=== PATIENT | female | born 1990 | race American Indian/Alaskan Native ===

== ENCOUNTER 2018-02-06 00:45 | Emergency (ER) | payer MEDICAID ==
[2018-02-06 03:22] LABS: Amorphous Crystals,Urine 1+; Bilirubin,Urine NEG (Negative); Blood,Urine NEG (Negative); Color,Urine Yellow (Yellow); Mucus,Urine 2+ /HPF; Protein,Urine <15 mg/dL mg/dL (Negative); Urobilinogen,Urine < 2.0 mg/dL (<2.0)
[2018-02-06 03:30] LABS: RBC,Urine < 1.0 /HPF (0.0-6.0); WBC,Urine < 1.0 /HPF (0.0-6.0)
[2018-02-06 06:05] LABS: Basophils % (Auto) 0.7 % (0.0-1.8); Eosinophils # (Auto) 0.6 K/mm3 (0.0-0.4); Eosinophils % (Auto) 8.2 % (0.0-4.3); Hematocrit 37.5 % (30.3-42.9); Hemoglobin 12.3 gm/dl (10.1-14.3); Lymphocytes % (Auto) 29.1 % (13.4-35.0); Mean Corpuscular HGB Conc 33 % (30-34); Mean Corpuscular Hemoglobin 29 pg (28-32); Mean Corpuscular Volume 89 fl (79-97); Monocytes # (Auto) 0.6 K/mm3 (0.0-0.8); Monocytes % (Auto) 8.3 % (0.0-7.3); Platelet Count 228 K/mm3 (140-440); Red Blood Count 4.19 M/mm3 (3.65-5.03); Red Cell Distribution Width 16.6 % (13.2-15.2)
[2018-02-06 06:17] LABS: Alanine Aminotransferase 15 units/L (7-56); Albumin 4.3 g/dL (3.9-5); BUN/Creatinine Ratio 17; Blood Urea Nitrogen 12 mg/dL (7-17); Calcium 9.1 mg/dL (8.4-10.2); Hemolysis Index 5
--- NOTE | 2018-02-06 06:20 | Emergency Department Report ---
ED Abdominal Pain HPI - General Chief Complaint: Abdominal Pain Stated Complaint: ABD PAIN Time Seen by Provider: 02/06/18 06:19 Source: patient Mode of arrival: Ambulatory Limitations: No Limitations - History of Present Illness Initial Comments: This is a 27-year-old female with complaints of left lower quadrant pain intermittently which does not radiate. It has improved at the time of my initial encounter which was not long after 6 AM. The patient has a distinct tendency to lay on her stomach with a sheet over her head. Doesn't much interact with nursing or providers. However, she will cooperate but then resumes that physician. She states that she has had intermittent pain since last night. It is dull in nature. States she has not had this before. She does not complain of any urinary symptoms nor any vaginal discharge. She states she has a histology aide. She also states her normal blood pressure is low. MD Complaint: abdominal pain -: Gradual, hour(s) Location: LLQ Radiation: none Migration to: no migration Severity: mild Quality: aching Consistency: intermittent, now resolved Improves With: nothing Worsens With: nothing Associated Symptoms: denies other symptoms - Related Data Allergies Allergy/AdvReac Type Severity Reaction Status Date / Time hydrocodone Allergy Hives Verified 07/29/16 09:37 Penicillins Allergy Unknown Verified 07/29/16 09:37 ED Review of Systems ROS: Stated complaint: ABD PAIN Other details as noted in HPI Constitutional: denies: chills, fever Eyes: denies: eye pain, eye discharge, vision change ENT: denies: ear pain, throat pain Respiratory: denies: cough, shortness of breath, wheezing Cardiovascular: denies: chest pain, palpitations Endocrine: no symptoms reported Gastrointestinal: abdominal pain. denies: nausea, diarrhea Genitourinary: denies: urgency, dysuria, discharge Musculoskeletal: denies: back pain, joint swelling, arthralgia Skin: denies: rash, lesions Neurological: denies: headache, weakness, paresthesias Psychiatric: denies: anxiety, depression Hematological/Lymphatic: denies: easy bleeding, easy bruising ED Past Medical Hx - Past Medical History Previous Medical History?: Yes Hx Psychiatric Treatment: Yes (dEPRESSION, shizophrenia, bipolar) - Surgical History Past Surgical History?: No - Social History Smoking Status: Current Every Day Smoker Substance Use Type: None ED Physical Exam - General Limitations: No Limitations General appearance: alert, in no apparent distress - Head Head exam: Present: atraumatic, normocephalic - Eye Eye exam: Present: normal appearance, PERRL, EOMI. Absent: scleral icterus - ENT ENT exam: Present: mucous membranes moist - Neck Neck exam: Present: normal inspection. Absent: tenderness, meningismus - Respiratory Respiratory exam: Present: normal lung sounds bilaterally. Absent: respiratory distress - Cardiovascular Cardiovascular Exam: Present: regular rate, normal rhythm. Absent: systolic murmur, diastolic murmur, rubs, gallop - GI/Abdominal GI/Abdominal exam: Present: soft, normal bowel sounds. Absent: distended, tenderness, guarding, rebound, rigid, organomegaly, mass, bruit, pulsatile mass , hernia - Extremities Exam Extremities exam: Present: normal inspection - Back Exam Back exam: Present: normal inspection. Absent: CVA tenderness (R), CVA tenderness (L) - Neurological Exam Neurological exam: Present: alert, oriented X3, CN II-XII intact. Absent: motor sensory deficit - Psychiatric Psychiatric exam: Present: normal affect, normal mood - Skin Skin exam: Present: warm, dry, intact, normal color. Absent: rash ED Course Vital Signs 02/06/18 02/06/18 02/06/18 02:32 06:54 07:10 Temperature 98 F 98.7 F Pulse Rate 90 67 Respiratory 18 17 Rate Blood Pressure 101/71 Blood Pressure 86/46 [Right] O2 Sat by Pulse 97 100 98 Oximetry 02/06/18 02/06/18 08:04 08:34 Temperature Pulse Rate Respiratory 18 16 Rate Blood Pressure Blood Pressure [Right] O2 Sat by Pulse Oximetry - Reevaluation(s) Reevaluation #1: Patient found again laying on her stomach with sheet over her head. She states she is ready for discharge. Her laboratory and imaging studies were unremarkable. She is appropriate for follow-up with her histology aide. Blood pressure was in the 90s systolic on my exam. Patient was well perfused and mentating. 02/06/18 11:23 02/06/18 11:24 ED Medical Decision Making - Lab Data Result diagrams: 02/06/18 05:49 02/06/18 05:49 Laboratory Results - last 24 hr 02/06/18 02/06/18 02/06/18 02:57 05:49 05:49 WBC 6.9 RBC 4.19 Hgb 12.3 Hct 37.5 MCV 89 MCH 29 MCHC 33 RDW 16.6 H Plt Count 228 Lymph % (Auto) 29.1 [place] % (Auto) 8.3 H Eos % (Auto) 8.2 H Baso % (Auto) 0.7 Lymph # 2.0 [place] # 0.6 Eos # 0.6 H Baso # 0.0 Seg Neutrophils % 53.7 Seg Neutrophils # 3.7 Sodium 142 Potassium 4.2 Chloride 104.0 Carbon Dioxide 28 Anion Gap 14 BUN 12 Creatinine 0.7 Estimated GFR > 60 BUN/Creatinine Ratio 17 Glucose 104 H Calcium 9.1 Total Bilirubin < 0.20 AST 20 ALT 15 Alkaline Phosphatase 76 Total Protein 7.2 Albumin 4.3 Albumin/Globulin Ratio 1.5 Urine Color Yellow Urine Turbidity Clear Urine pH 6.0 Ur Specific [place] 1.028 Urine Protein <15 mg/dl Urine Glucose (UA) Neg Urine Ketones Tr Urine Blood Neg Urine Nitrite Neg Urine Bilirubin Neg Urine Urobilinogen < 2.0 Ur Leukocyte Esterase Sm Urine WBC (Auto) < 1.0 Urine RBC (Auto) < 1.0 U Epithel Cells (Auto) 4.0 Amorphous Crystals 1+ Urine Mucus 2+ Urine Yeast (Budding) Few - Radiology Data Radiology results: report reviewed interpreted by me: Ultrasound of the abdomen and renal ultrasound were negative Critical care attestation.: If time is entered above; I have spent that time in minutes in the direct care of this critically ill patient, excluding procedure time. ED Disposition Clinical Impression: Abdominal pain Qualifiers: Abdominal location: left lower quadrant Qualified Code(s): R10.32 - Left lower quadrant pain Disposition: - TO HOME OR SELFCARE Is pt being admited?: No Does the pt Need Aspirin: No Condition: Stable Instructions: Abdominal Pain (ED) Additional Instructions: Follow-up with usual histology aide. Return any acute change or problems Referrals: PRIMARY CARE,MD [Primary Care Provider] - 3-5 Days usual, histology aide [Other] - 3-5 Days Time of Disposition: 11:24
[2018-02-06 06:23] LABS: HCG Qualitative,Urine Negative (Negative)
[2018-02-06] MEDS ORDERED: NACL 0.9% 1000 ML 1,000 ML IV ONE (06:23)
[2018-02-06] MEDS ORDERED: TORADOL IV ONE (06:53)
--- NOTE | 2018-02-06 08:36 | Ultrasound Report ---
Pelvic and transvaginal sonography: History: Right lower quadrant pain. Findings: Uterus measures 8 x 4.9 x 4.9 cm. Endometrial thickness 7.3 mm. No mass. No fluid in the endometrium. Right ovary 2.9 x 2 x 2.6 cm. No mass. Left ovary 3.9 x 1.6 x 2.4 cm. No mass. Bilaterally follicles are noted. No fluid in the cul-de-sac. Impression: No mass in the uterus. No mass of the adnexa
--- NOTE | 2018-02-06 08:37 | Ultrasound Report ---
Renal sonogram: History: Abdominal pain. Findings: Right kidney 9.1 x 4.1 x 5 cm. Cortical thickness 1 cm. Left kidney 11.5 x 4.9 x 4.9 cm. Cortical thickness 1.5 cm. No mass or hydronephrosis. Impression: Essentially negative renal sonogram.
[2018-02-06 12:26] VITALS: BP 92/48
== END 2018-02-06 11:56 | disposition home or self-care (01) ==
LOC: ED 00:45
DX: R10.32 Left lower quadrant pain (principal); F31.9 Bipolar disorder, unspecified; F20.9 Schizophrenia, unspecified; F17.200 Nicotine dependence, unspecified, uncomplicated; Z88.0 Allergy status to penicillin; Z88.8 Allergy status to other drugs, medicaments and biological substances
CPT/HCPCS: 36415; 76770; 76856; 80053; 81001; 81025; 85025; 96374; 99284; J1885; J7030

== ENCOUNTER 2019-03-17 12:22 | Emergency (ER) | payer MEDICAID ==
--- NOTE | 2019-03-17 12:37 | Emergency Department Report ---
Blank Doc - Documentation Documentation: This is a 28-year-old female that presents with coughing and headache. Stated has abdominal pain only when coughing. Denies any abdominal pain now. Denies head trauma or worst headache. denies any other complaints or symptoms. This initial assessment/diagnostic orders/clinical plan/treatment(s) is/are subject to change based on patient's health status, clinical progression and re- assessment by fellow clinical providers in the ED. Further treatment and workup at subsequent clinical providers discretion. Patient/guardians urged not to elope from the ED as their condition may be serious if not clinically assessed and managed. Initial orders include: 1- Patient sent to [facility] for further evaluation and treatment 2- CXR
[2019-03-17 12:39] VITALS: BP 98/54
[2019-03-17] MEDS ORDERED: IBUPROFEN PO ONE (13:27)
--- NOTE | 2019-03-17 13:29 | Emergency Department Report ---
ED General Adult HPI - General Chief complaint: Abdominal Pain Stated complaint: HEADACHE/COUGHING UP BLOOD Time Seen by Provider: 03/17/19 12:34 Source: patient Mode of arrival: Ambulatory Limitations: No Limitations - History of Present Illness Initial comments: This is a 28-year-old female that presents with coughing and headache. Stated has abdominal pain only when coughing. Denies any abdominal pain now. Denies head trauma or worst headache. denies any other complaints or symptoms. Onset/Timin -: days(s) Location: head Radiation: non-radiation Severity scale (0 -10): 0 Quality: aching Consistency: intermittent Improves with: none Worsens with: none Associated Symptoms: cough Treatments Prior to Arrival: other (TheraFlu) - Related Data Previous Rx's Medication Instructions Recorded Last Taken Type Ibuprofen [Motrin 600 MG tab] 600 mg PO Q8H PRN #15 tablet 03/17/19 Unknown Rx guaiFENesin [Robitussin] 200 mg PO Q4HR PRN #1 bottle 03/17/19 Unknown Rx Allergies Allergy/AdvReac Type Severity Reaction Status Date / Time hydrocodone Allergy Hives Verified 07/29/16 09:37 Penicillins Allergy Unknown Verified 07/29/16 09:37 PEROXIDE Allergy Hives Uncoded 03/17/19 12:23 ED Review of Systems ROS: Stated complaint: HEADACHE/COUGHING UP BLOOD Other details as noted in HPI Comment: All other systems reviewed and negative ED Past Medical Hx - Past Medical History Hx Psychiatric Treatment: Yes (dEPRESSION, shizophrenia, bipolar) - Surgical History Past Surgical History?: No - Social History Smoking Status: Light Tobacco Smoker Substance Use Type: Marijuana - Medications Home Medications: Home Medications Medication Instructions Recorded Confirmed Last Taken Type Ibuprofen [Motrin 600 MG tab] 600 mg PO Q8H PRN #15 tablet 03/17/19 Unknown Rx guaiFENesin [Robitussin] 200 mg PO Q4HR PRN #1 bottle 03/17/19 Unknown Rx ED Physical Exam - General Limitations: No Limitations General appearance: alert, in no apparent distress - Head Head exam: Present: atraumatic, normocephalic - Eye Eye exam: Present: normal appearance - ENT ENT exam: Present: mucous membranes moist - Neck Neck exam: Present: normal inspection - Respiratory Respiratory exam: Present: normal lung sounds bilaterally. Absent: respiratory distress - Cardiovascular Cardiovascular Exam: Present: regular rate, normal rhythm. Absent: systolic murmur, diastolic murmur, rubs, gallop - GI/Abdominal GI/Abdominal exam: Present: soft, normal bowel sounds - Extremities Exam Extremities exam: Present: normal inspection - Back Exam Back exam: Present: normal inspection - Neurological Exam Neurological exam: Present: alert, oriented X3 - Expanded Neurological Exam Expanded Cranial nerves: EOM's Intact: Normal, Gag Reflex: Normal, Tongue Deviation: Normal, Nystagmus: Normal, Facial Sensation: Normal, Facial Palsy with Forehead Movement: Normal, Facial Palsy without Forehead Movement: Normal Cerebellar function: Finger to Nose: Normal, Heel to [place]: Normal, Romberg: Normal Upper motor neuron: [place] Neglect: Normal, Pronator Drift: Normal, Babinski Sign: Normal, Sensory Extinction: Normal Motor strength exam: RUE: 5, LUE: 5, RLE: 5, LLE: 5 Best Eye Response (Jonathon): (4) open spontaneously Best Motor Response (Circle): (6) obeys commands Best Verbal Response (Jonathon): (5) oriented Jonathon Total: 15 - Psychiatric Psychiatric exam: Present: normal affect, normal mood - Skin Skin exam: Present: warm, dry, intact, normal color. Absent: rash ED Course Vital Signs 03/17/19 12:34 Temperature 98.6 F Pulse Rate 90 Respiratory 16 Rate Blood Pressure 98/54 O2 Sat by Pulse 100 Oximetry ED Medical Decision Making - Radiology Data Radiology results: report reviewed Patient: RADHA WINCHESTER MR#: [id number] : 1990 Acct:[id number] Age/Sex: 28 / F ADM Date: 03/17/19 Loc: ED Attending Dr: Ordering Physician: DARÍO STANLEY NP Date of Service: 03/17/19 Procedure(s): XR chest routine 2V Accession Number(s): [id number] cc: DARÍO STANLEY NP Fluoro Time In Minutes: CHEST 2 VIEWS INDICATION: cough. COMPARISON: None. FINDINGS: Support devices: None. Heart: Normal. Lungs/pleura: Normally expanded and clear lungs. No pleural effusion. No pneumothorax. Additional findings: None. IMPRESSION: 1. No acute findings. Signer Name: Morgan Engel MD Signed: 03/17/2019 1:28 PM Workstation Name: [id number] Transcribed By: REF Dictated By: MORGAN ENGEL MD Electronically Authenticated By: MORGAN ENGEL MD Signed Date/Time: 03/17/191327 DD/ 27 TD/TT: - Medical Decision Making This is a 28-year-old female that presents with coughing and headache. Stated has abdominal pain only when coughing. Denies any abdominal pain now. Denies head trauma or worst headache. denies any other complaints or symptoms. Patient given ibuprofen 600 mg for pain management. Chest x-ray is pending results. Chest x-ray is negative for any acute cardiopulmonary abnormalities. Patient will be discharged home on Robitussin liquid in ibuprofen. Critical care attestation.: If time is entered above; I have spent that time in minutes in the direct care o f this critically ill patient, excluding procedure time. ED Disposition Clinical Impression: Cough Headache Qualifiers: Headache type: tension-type Headache chronicity pattern: acute headache Intractability: intractable Qualified Code(s): G44.201 - Tension-type headache, unspecified, intractable Disposition: DC-01 TO HOME OR SELFCARE Is pt being admited?: No Does the pt Need Aspirin: No Condition: Stable Instructions: Guaifenesin (By mouth), Acute Cough (ED) Additional Instructions: Please take pain medication as needed please take cough medication as needed follow-up with her primary care provider for symptoms persist or gets worse. Prescriptions: Ibuprofen [Motrin 600 MG tab] 600 mg PO Q8H PRN #15 tablet PRN Reason: Pain guaiFENesin [Robitussin] 200 mg PO Q4HR PRN #1 bottle PRN Reason: Cough Referrals: KIRILL CHÁVEZ MD [Primary Care Provider] - 3-5 Days NANI YBARRA MD [Staff Physician] - 3-5 Days
--- NOTE | 2019-03-17 13:33 | XRay Report ---
CHEST 2 VIEWS INDICATION: cough. COMPARISON: None. FINDINGS: Support devices: None. Heart: Normal. Lungs/pleura: Normally expanded and clear lungs. No pleural effusion. No pneumothorax. Additional findings: None. IMPRESSION: 1. No acute findings. Signer Name: Yvan Montenegro MD Signed: 03/17/2019 1:28 PM Workstation Name: [id number]
== END 2019-03-17 13:49 | disposition home or self-care (01) ==
LOC: ED 12:22
DX: R05 Cough (principal); R51 Headache; F31.9 Bipolar disorder, unspecified; F20.9 Schizophrenia, unspecified; F17.210 Nicotine dependence, cigarettes, uncomplicated; F12.90 Cannabis use, unspecified, uncomplicated; Z79.899 Other long term (current) drug therapy; Z88.6 Allergy status to analgesic agent; Z88.0 Allergy status to penicillin; Z88.8 Allergy status to other drugs, medicaments and biological substances
CPT/HCPCS: 71046; 99283

== ENCOUNTER 2020-02-22 21:31 | Emergency (ER) | payer MEDICARE, MEDICAID ==
[2020-02-22 23:30] LABS: Basophils % (Auto) 0.6 % (0.0-1.8); Eosinophils # (Auto) 0.3 K/mm3 (0.0-0.4); Eosinophils % (Auto) 5.3 % (0.0-4.3); Hematocrit 39.8 % (30.3-42.9); Hemoglobin 13.2 gm/dl (10.1-14.3); Lymphocytes # (Auto) 1.8 K/mm3 (1.2-5.4); Lymphocytes % (Auto) 31.1 % (13.4-35.0); Mean Corpuscular HGB Conc 33 % (30-34); Mean Corpuscular Volume 92 fl (79-97); Monocytes # (Auto) 0.6 K/mm3 (0.0-0.8); Monocytes % (Auto) 10.4 % (0.0-7.3); Platelet Count 223 K/mm3 (140-440); Red Blood Count 4.34 M/mm3 (3.65-5.03)
[2020-02-22 23:42] LABS: BUN/Creatinine Ratio 12; Blood Urea Nitrogen 12 mg/dL (7-17); Calcium 8.8 mg/dL (8.4-10.2); Hemolysis Index 3
--- NOTE | 2020-02-23 01:09 | Emergency Department Report ---
ED Psych HPI - General Chief Complaint: Psych Stated Complaint: SUICIDAL Time Seen by Provider: 02/23/20 00:40 Source: patient, EMS Mode of arrival: Ambulatory Limitations: No Limitations - History of Present Illness Initial Comments: 29-year-old female with a past medical history of depression, schizophrenia, bipolar disorder presents to the hospital complaining of suicidal ideation x1 day. Patient's plan is to cut herself with a knife. She denies previous suicide attempt in the past. She endorses auditory visual hallucinations for the past 3 days. She is compliant with her medications. She is not homeless. Patient denies any physical complaints or pain at this time - Related Data Previous Rx's Medication Instructions Recorded Last Taken Type Ibuprofen [Motrin 600 MG tab] 600 mg PO Q8H PRN #15 tablet 03/17/19 Unknown Rx guaiFENesin [Robitussin] 200 mg PO Q4HR PRN #1 bottle 03/17/19 Unknown Rx Allergies Allergy/AdvReac Type Severity Reaction Status Date / Time hydrocodone Allergy Hives Verified 07/29/16 09:37 Penicillins Allergy Unknown Verified 07/29/16 09:37 PEROXIDE Allergy Hives Uncoded 03/17/19 12:23 ED Review of Systems ROS: Stated complaint: SUICIDAL Other details as noted in HPI Comment: All other systems reviewed and negative ED Past Medical Hx - Past Medical History Previous Medical History?: Yes Hx Psychiatric Treatment: Yes (dEPRESSION, shizophrenia, bipolar) - Surgical History Past Surgical History?: No - Social History Smoking Status: Current Every Day Smoker Substance Use Type: Marijuana - Medications Home Medications: Home Medications Medication Instructions Recorded Confirmed Last Taken Type Ibuprofen [Motrin 600 MG tab] 600 mg PO Q8H PRN #15 tablet 03/17/19 Unknown Rx guaiFENesin [Robitussin] 200 mg PO Q4HR PRN #1 bottle 03/17/19 Unknown Rx ED Physical Exam - General Limitations: No Limitations - Other Other exam information: General: No acute distress Head: Atraumatic Eyes: normal appearance ENT: Moist mucous membranes Neck: Normal appearance, no midline tenderness Chest: Clear to auscultation bilaterally CV: Regular rate and rhythm Abdomen: Soft, normal bowel sounds, nontender, nondistended, no rebound or guarding Back: Normal inspection Extremity: Normal inspection, full range of motion Neuro: Alert O x 3, no facial asymmetry, speech clear, no gross motor sensory deficit Psych: Appropriate behavior Skin: No rash ED Course Vital Signs 02/22/20 21:52 Temperature 98.5 F Pulse Rate 98 H Respiratory 18 Rate Blood Pressure 137/85 O2 Sat by Pulse 98 Oximetry - Reevaluation(s) Reevaluation #1: 02/23/20 00:56 Patient's labs are unremarkable. Awaiting UA collection to complete medical clearance 02/23/20 02:41 UA neg for infection likely contaminated sample. UDS pending ED Medical Decision Making - Lab Data Result diagrams: 02/22/20 22:35 02/22/20 22:35 Lab Results 02/22/20 02/22/20 02/22/20 Range/Units 22:35 22:35 22:35 WBC (4.5-11.0) K/mm3 RBC (3.65-5.03) M/mm3 Hgb (10.1-14.3) gm/dl Hct (30.3-42.9) % MCV (79-97) fl MCH (28-32) pg MCHC (30-34) % RDW (13.2-15.2) % Plt Count (140-440) K/mm3 Lymph % (Auto) (13.4-35.0) % [place] % (Auto) (0.0-7.3) % Eos % (Auto) (0.0-4.3) % Baso % (Auto) (0.0-1.8) % Lymph # (1.2-5.4) K/mm3 [place] # (0.0-0.8) K/mm3 Eos # (0.0-0.4) K/mm3 Baso # (0.0-0.1) K/mm3 Seg Neutrophils % (40.0-70.0) % Seg Neutrophils # (1.8-7.7) K/mm3 Sodium 140 (137-145) mmol/L Potassium 3.7 (3.6-5.0) mmol/L Chloride 105.4 (98-107) mmol/L Carbon Dioxide 19 L (22-30) mmol/L Anion Gap 19 mmol/L BUN 12 (7-17) mg/dL Creatinine 1.0 (0.7-1.2) mg/dL Estimated GFR > 60 ml/min BUN/Creatinine Ratio 12 % Glucose 80 (65-100) mg/dL Calcium 8.8 (8.4-10.2) mg/dL HCG, Qual (Negative) Urine Color (Yellow) Urine Turbidity (Clear) Urine pH (5.0-7.0) Ur Specific [place] (1.003-1.030) Urine Protein (Negative) mg/dL Urine Glucose (UA) (Negative) mg/dL Urine Ketones (Negative) mg/dL Urine Blood (Negative) Urine Nitrite (Negative) Urine Bilirubin (Negative) Urine Urobilinogen (<2.0) mg/dL Ur Leukocyte Esterase (Negative) Urine WBC (Auto) (0.0-6.0) /HPF Urine RBC (Auto) (0.0-6.0) /HPF U Epithel Cells (Auto) (0-13.0) /HPF Urine Mucus /HPF Salicylates < 0.3 L (2.8-20.0) mg/dL Acetaminophen < 5.0 L (10.0-30.0) ug/mL Plasma/Serum Alcohol (0-0.07) % 02/22/20 02/22/20 02/22/20 Range/Units 22:35 22:35 22:35 WBC 5.8 (4.5-11.0) K/mm3 RBC 4.34 (3.65-5.03) M/mm3 Hgb 13.2 (10.1-14.3) gm/dl Hct 39.8 (30.3-42.9) % MCV 92 (79-97) fl MCH 31 (28-32) pg MCHC 33 (30-34) % RDW 17.0 H (13.2-15.2) % Plt Count 223 (140-440) K/mm3 Lymph % (Auto) 31.1 (13.4-35.0) % [place] % (Auto) 10.4 H (0.0-7.3) % Eos % (Auto) 5.3 H (0.0-4.3) % Baso % (Auto) 0.6 (0.0-1.8) % Lymph # 1.8 (1.2-5.4) K/mm3 [place] # 0.6 (0.0-0.8) K/mm3 Eos # 0.3 (0.0-0.4) K/mm3 Baso # 0.0 (0.0-0.1) K/mm3 Seg Neutrophils % 52.6 (40.0-70.0) % Seg Neutrophils # 3.0 (1.8-7.7) K/mm3 Sodium (137-145) mmol/L Potassium (3.6-5.0) mmol/L Chloride (98-107) mmol/L Carbon Dioxide (22-30) mmol/L Anion Gap mmol/L BUN (7-17) mg/dL Creatinine (0.7-1.2) mg/dL Estimated GFR ml/min BUN/Creatinine Ratio % Glucose (65-100) mg/dL Calcium (8.4-10.2) mg/dL HCG, Qual Negative (Negative) Urine Color (Yellow) Urine Turbidity (Clear) Urine pH (5.0-7.0) Ur Specific [place] (1.003-1.030) Urine Protein (Negative) mg/dL Urine Glucose (UA) (Negative) mg/dL Urine Ketones (Negative) mg/dL Urine Blood (Negative) Urine Nitrite (Negative) Urine Bilirubin (Negative) Urine Urobilinogen (<2.0) mg/dL Ur Leukocyte Esterase (Negative) Urine WBC (Auto) (0.0-6.0) /HPF Urine RBC (Auto) (0.0-6.0) /HPF U Epithel Cells (Auto) (0-13.0) /HPF Urine Mucus /HPF Salicylates (2.8-20.0) mg/dL Acetaminophen (10.0-30.0) ug/mL Plasma/Serum Alcohol < 0.01 (0-0.07) % 02/22/20 Range/Units Unknown WBC (4.5-11.0) K/mm3 RBC (3.65-5.03) M/mm3 Hgb (10.1-14.3) gm/dl Hct (30.3-42.9) % MCV (79-97) fl MCH (28-32) pg MCHC (30-34) % RDW (13.2-15.2) % Plt Count (140-440) K/mm3 Lymph % (Auto) (13.4-35.0) % [place] % (Auto) (0.0-7.3) % Eos % (Auto) (0.0-4.3) % Baso % (Auto) (0.0-1.8) % Lymph # (1.2-5.4) K/mm3 [place] # (0.0-0.8) K/mm3 Eos # (0.0-0.4) K/mm3 Baso # (0.0-0.1) K/mm3 Seg Neutrophils % (40.0-70.0) % Seg Neutrophils # (1.8-7.7) K/mm3 Sodium (137-145) mmol/L Potassium (3.6-5.0) mmol/L Chloride (98-107) mmol/L Carbon Dioxide (22-30) mmol/L Anion Gap mmol/L BUN (7-17) mg/dL Creatinine (0.7-1.2) mg/dL Estimated GFR ml/min BUN/Creatinine Ratio % Glucose (65-100) mg/dL Calcium (8.4-10.2) mg/dL HCG, Qual (Negative) Urine Color Yellow (Yellow) Urine Turbidity Cloudy (Clear) Urine pH 5.0 (5.0-7.0) Ur Specific [place] 1.025 (1.003-1.030) Urine Protein <15 mg/dl (Negative) mg/dL Urine Glucose (UA) Neg (Negative) mg/dL Urine Ketones Neg (Negative) mg/dL Urine Blood Neg (Negative) Urine Nitrite Neg (Negative) Urine Bilirubin Neg (Negative) Urine Urobilinogen < 2.0 (<2.0) mg/dL Ur Leukocyte Esterase Sm (Negative) Urine WBC (Auto) 15.0 H (0.0-6.0) /HPF Urine RBC (Auto) 4.0 (0.0-6.0) /HPF U Epithel Cells (Auto) 14.0 H (0-13.0) /HPF Urine Mucus 2+ /HPF Salicylates (2.8-20.0) mg/dL Acetaminophen (10.0-30.0) ug/mL Plasma/Serum Alcohol (0-0.07) % - Medical Decision Making [id number] signed for suicidal ideation with plan. Patient will need mental health evaluation. Critical Care Time: No Critical care attestation.: If time is entered above; I have spent that time in minutes in the direct care of this critically ill patient, excluding procedure time. ED Disposition Clinical Impression: Suicidal ideation, Psychosis, Schizophrenia, Bipolar disorder, Medical clearance for psychiatric admission Disposition: DC/TX-65 PSY HOSP/PSY UNIT Condition: Stable
[2020-02-23 02:32] LABS: Amphetamine Screen,Urine PRESUMPTIVE NEGATIVE; Benzodiazepines Screen,Urine PRESUMPTIVE NEGATIVE; Cannabinoid Screen,Urine PRESUMPTIVE NEGATIVE; Cocaine Screen,Urine PRESUMPTIVE NEGATIVE; Methadone Screen,Urine PRESUMPTIVE NEGATIVE; Opiate Screen,Urine PRESUMPTIVE NEGATIVE
[2020-02-23 02:36] LABS: Bilirubin,Urine NEG (Negative); Blood,Urine NEG (Negative); Color,Urine Yellow (Yellow); Mucus,Urine 2+ /HPF; Protein,Urine <15 mg/dL mg/dL (Negative); Urobilinogen,Urine < 2.0 mg/dL (<2.0)
[2020-02-23 20:33] VITALS: BP 113/68
== END 2020-02-23 20:51 ==
LOC: ED 21:31 → EEVIPCON 21:31 → ED 02-23 20:51
DX: R45.851 Suicidal ideations (principal); F29 Unspecified psychosis not due to a substance or known physiological condition; F20.9 Schizophrenia, unspecified; F31.9 Bipolar disorder, unspecified; Z04.6 Encounter for general psychiatric examination, requested by authority; F17.200 Nicotine dependence, unspecified, uncomplicated; F12.10 Cannabis abuse, uncomplicated; Z79.1 Long term (current) use of non-steroidal anti-inflammatories (NSAID); Z79.899 Other long term (current) drug therapy; Z88.0 Allergy status to penicillin; Z88.8 Allergy status to other drugs, medicaments and biological substances
CPT/HCPCS: 36415; 80048; 80307; 80320; 81001; 84703; 85025; 87086; G0480

== ENCOUNTER 2020-06-08 04:38 | Emergency (ER) | payer MEDICARE, MEDICAID ==
[2020-06-08 06:25] LABS: Bacteria,Urine 1+ /HPF (Negative); Bilirubin,Urine NEG (Negative); Blood,Urine NEG (Negative); Color,Urine Yellow (Yellow); Mucus,Urine FEW /HPF; Protein,Urine <15 mg/dL mg/dL (Negative); RBC,Urine < 1.0 /HPF (0.0-6.0); Urobilinogen,Urine < 2.0 mg/dL (<2.0)
[2020-06-08 06:27] LABS: Basophils % (Auto) 0.4 % (0.0-1.8); Eosinophils # (Auto) 0.1 K/mm3 (0.0-0.4); Hematocrit 37.9 % (30.3-42.9); Hemoglobin 12.9 gm/dl (10.1-14.3); Lymphocytes # (Auto) 1.9 K/mm3 (1.2-5.4); Lymphocytes % (Auto) 24.7 % (13.4-35.0); Mean Corpuscular HGB Conc 34 % (30-34); Mean Corpuscular Volume 90 fl (79-97); Monocytes # (Auto) 0.4 K/mm3 (0.0-0.8); Monocytes % (Auto) 4.9 % (0.0-7.3); Platelet Count 265 K/mm3 (140-440); Red Blood Count 4.23 M/mm3 (3.65-5.03); Red Cell Distribution Width 13.8 % (13.2-15.2)
[2020-06-08 06:32] LABS: Amphetamine Screen,Urine PRESUMPTIVE NEGATIVE; Benzodiazepines Screen,Urine PRESUMPTIVE NEGATIVE; Cannabinoid Screen,Urine PRESUMPTIVE POSITIVE; Cocaine Screen,Urine PRESUMPTIVE POSITIVE; Methadone Screen,Urine PRESUMPTIVE NEGATIVE; Opiate Screen,Urine PRESUMPTIVE NEGATIVE
[2020-06-08 06:44] LABS: Alanine Aminotransferase 17 units/L (7-56); Albumin 4.2 g/dL (3.9-5)
[2020-06-08 06:54] LABS: Bilirubin,Direct < 0.2 mg/dL (0-0.2)
[2020-06-08 11:09] LABS: BUN/Creatinine Ratio 8; Blood Urea Nitrogen 7 mg/dL (7-17); Calcium 9.4 mg/dL (8.4-10.2); Hemolysis Index 10
--- NOTE | 2020-06-08 16:17 | Emergency Department Report ---
ED Psych HPI - General Chief Complaint: Psych Stated Complaint: SUICIDAL IDEATIONS, DEPRESSION, & ANXIETY Time Seen by Provider: 06/08/20 06:08 Source: patient, EMS Mode of arrival: Ambulatory - History of Present Illness Initial Comments: This is a 29-year-old female with a psychiatric history. She states that she moved here from [place] a week ago and that she has been staying here with her mother. She states that she has not been admitted to a psychiatric facility in this area. However she was here in February 2020. Notes reveal that she was 1013. I do not see a transfer form. I am wondering if she eloped. Patient gives many triggers for a 1013. She appears to have some degree of secondary gain. Her history is not very reliable in general. She states that she has "command hallucinations" which tell her to hurt herself. She has not formulated a specific plan. She denies overdose. She is not complaining of any specific medical symptoms. She does admit auditory and visual hallucinosis but appears to have good reality testing not apparently psychotic at the time of my encounter. MD Complaint: suicidal ideation -: days(s) Associated Psychiatric Symptoms: suicidal ideation, auditory hallucinations, visual hallucinations History of same: Yes Quality: intermittent Worsens With: none Associated Symptoms: denies other symptoms Treatments Prior to Arrival: none - Related Data Previous Rx's Medication Instructions Recorded Last Taken Type Ibuprofen [Motrin 600 MG tab] 600 mg PO Q8H PRN #15 tablet 03/17/19 Unknown Rx guaiFENesin [Robitussin] 200 mg PO Q4HR PRN #1 bottle 03/17/19 Unknown Rx Allergies Allergy/AdvReac Type Severity Reaction Status Date / Time hydrocodone Allergy Hives Verified 07/29/16 09:37 Penicillins Allergy Unknown Verified 07/29/16 09:37 PEROXIDE Allergy Hives Uncoded 03/17/19 12:23 ED Review of Systems ROS: Stated complaint: SUICIDAL IDEATIONS, DEPRESSION, & ANXIETY Other details as noted in HPI Constitutional: denies: chills, fever Eyes: denies: eye pain, eye discharge, vision change ENT: denies: ear pain, throat pain Respiratory: denies: cough, shortness of breath, wheezing Cardiovascular: denies: chest pain, palpitations Endocrine: no symptoms reported Gastrointestinal: denies: abdominal pain, nausea, diarrhea Genitourinary: denies: urgency, dysuria, discharge Musculoskeletal: denies: back pain, joint swelling, arthralgia Skin: denies: rash, lesions Neurological: denies: headache, weakness, paresthesias Psychiatric: auditory hallucinations, visual hallucinations, suicidal thoughts. denies: anxiety, depression Hematological/Lymphatic: denies: easy bleeding, easy bruising ED Past Medical Hx - Past Medical History Previous Medical History?: Yes Hx Psychiatric Treatment: Yes (dEPRESSION, shizophrenia, bipolar) - Surgical History Past Surgical History?: No - Social History Smoking Status: Current Every Day Smoker - Medications Home Medications: Home Medications Medication Instructions Recorded Confirmed Last Taken Type Ibuprofen [Motrin 600 MG tab] 600 mg PO Q8H PRN #15 tablet 03/17/19 Unknown Rx guaiFENesin [Robitussin] 200 mg PO Q4HR PRN #1 bottle 03/17/19 Unknown Rx ED Physical Exam - General Limitations: No Limitations General appearance: alert, in no apparent distress - Head Head exam: Present: atraumatic, normocephalic - Eye Eye exam: Present: normal appearance. Absent: scleral icterus - ENT ENT exam: Present: mucous membranes moist - Neck Neck exam: Present: normal inspection - Respiratory Respiratory exam: Present: normal lung sounds bilaterally. Absent: respiratory distress - Cardiovascular Cardiovascular Exam: Present: regular rate, normal rhythm. Absent: systolic murmur, diastolic murmur, rubs, gallop - GI/Abdominal GI/Abdominal exam: Present: soft, normal bowel sounds. Absent: distended, tenderness, guarding, rebound, rigid - Extremities Exam Extremities exam: Present: normal inspection - Back Exam Back exam: Present: normal inspection - Neurological Exam Neurological exam: Present: alert, oriented X3, CN II-XII intact. Absent: motor sensory deficit - Psychiatric Psychiatric exam: Present: normal mood, flat affect, suicidal ideation - Skin Skin exam: Present: warm, dry, intact, normal color. Absent: rash ED Course Vital Signs 06/08/20 06:15 Temperature 98.5 F Pulse Rate 95 H Respiratory 18 Rate Blood Pressure 111/76 [Left] O2 Sat by Pulse 98 Oximetry ED Medical Decision Making - Lab Data Result diagrams: 06/08/20 05:56 06/08/20 05:56 Laboratory Results - last 24 hr 06/08/20 06/08/20 06/08/20 05:56 05:56 05:56 WBC RBC Hgb Hct MCV MCH MCHC RDW Plt Count Lymph % (Auto) [place] % (Auto) Eos % (Auto) Baso % (Auto) Lymph # (Auto) [place] # (Auto) Eos # (Auto) Baso # (Auto) Seg Neutrophils % Seg Neutrophils # Sodium 139 Potassium 4.0 Chloride 101.6 Carbon Dioxide 22 Anion Gap 19 BUN 7 Creatinine 0.9 Estimated GFR > 60 BUN/Creatinine Ratio 8 Glucose 116 H Calcium 9.4 Total Bilirubin Direct Bilirubin AST ALT Alkaline Phosphatase Total Protein Albumin Albumin/Globulin Ratio HCG, Qual Urine Color Urine Turbidity Urine pH Ur Specific [place] Urine Protein Urine Glucose (UA) Urine Ketones Urine Blood Urine Nitrite Urine Bilirubin Urine Urobilinogen Ur Leukocyte Esterase Urine WBC (Auto) Urine RBC (Auto) U Epithel Cells (Auto) Urine Bacteria (Auto) Urine Mucus Salicylates < 0.3 L Urine Opiates Screen Urine Methadone Screen Acetaminophen 5.0 L Ur Barbiturates Screen Ur Phencyclidine Scrn Ur Amphetamines Screen U Benzodiazepines Scrn Urine Cocaine Screen U Marijuana (THC) Screen Drugs of Abuse Note Plasma/Serum Alcohol 06/08/20 06/08/20 06/08/20 05:56 05:56 05:56 WBC 7.8 RBC 4.23 Hgb 12.9 Hct 37.9 MCV 90 MCH 31 MCHC 34 RDW 13.8 Plt Count 265 Lymph % (Auto) 24.7 [place] % (Auto) 4.9 Eos % (Auto) 1.0 Baso % (Auto) 0.4 Lymph # (Auto) 1.9 [place] # (Auto) 0.4 Eos # (Auto) 0.1 Baso # (Auto) 0.0 Seg Neutrophils % 69.0 Seg Neutrophils # 5.4 Sodium Potassium Chloride Carbon Dioxide Anion Gap BUN Creatinine Estimated GFR BUN/Creatinine Ratio Glucose Calcium Total Bilirubin Direct Bilirubin AST ALT Alkaline Phosphatase Total Protein Albumin Albumin/Globulin Ratio HCG, Qual Negative Urine Color Urine Turbidity Urine pH Ur Specific [place] Urine Protein Urine Glucose (UA) Urine Ketones Urine Blood Urine Nitrite Urine Bilirubin Urine Urobilinogen Ur Leukocyte Esterase Urine WBC (Auto) Urine RBC (Auto) U Epithel Cells (Auto) Urine Bacteria (Auto) Urine Mucus Salicylates Urine Opiates Screen Urine Methadone Screen Acetaminophen Ur Barbiturates Screen Ur Phencyclidine Scrn Ur Amphetamines Screen U Benzodiazepines Scrn Urine Cocaine Screen U Marijuana (THC) Screen Drugs of Abuse Note Plasma/Serum Alcohol < 0.01 06/08/20 06/08/20 06/08/20 05:56 06:01 06:01 WBC RBC Hgb Hct MCV MCH MCHC RDW Plt Count Lymph % (Auto) [place] % (Auto) Eos % (Auto) Baso % (Auto) Lymph # (Auto) [place] # (Auto) Eos # (Auto) Baso # (Auto) Seg Neutrophils % Seg Neutrophils # Sodium Potassium Chloride Carbon Dioxide Anion Gap BUN Creatinine Estimated GFR BUN/Creatinine Ratio Glucose Calcium Total Bilirubin 0.30 Direct Bilirubin < 0.2 AST 20 ALT 17 Alkaline Phosphatase 99 Total Protein 7.1 Albumin 4.2 Albumin/Globulin Ratio 1.4 HCG, Qual Urine Color Yellow Urine Turbidity Slightly-cloudy Urine pH 6.0 Ur Specific [place] 1.013 Urine Protein <15 mg/dl Urine Glucose (UA) Neg Urine Ketones Tr Urine Blood Neg Urine Nitrite Neg Urine Bilirubin Neg Urine Urobilinogen < 2.0 Ur Leukocyte Esterase Tr Urine WBC (Auto) 5.0 Urine RBC (Auto) < 1.0 U Epithel Cells (Auto) 5.0 Urine Bacteria (Auto) 1+ Urine Mucus Few Salicylates Urine Opiates Screen Presumptive negative Urine Methadone Screen Presumptive negative Acetaminophen Ur Barbiturates Screen Presumptive negative Ur Phencyclidine Scrn Presumptive negative Ur Amphetamines Screen Presumptive negative U Benzodiazepines Scrn Presumptive negative Urine Cocaine Screen Presumptive positive U Marijuana (THC) Screen Presumptive positive Drugs of Abuse Note Disclamer Plasma/Serum Alcohol Critical care attestation.: If time is entered above; I have spent that time in minutes in the direct care of this critically ill patient, excluding procedure time. ED Disposition Clinical Impression: Psychiatric disorder, Suicidal ideation Disposition: [id number]/TX-65 PSY HOSP/PSY UNIT Is pt being admited?: No Does the pt Need Aspirin: No Condition: Stable Referrals: PRIMARY CARE [Primary Care Provider] - 3-5 Days Time of Disposition: 16:17
[2020-06-08] MEDS ORDERED: MAGNESIUM HYDROXIDE (MOM) ORAL LIQD UDC PO PRN (16:18)
[2020-06-08] MEDS ORDERED: ACETAMINOPHEN 325 MG TAB PO PRN (16:18)
[2020-06-08] MEDS ORDERED: ALUM-MAG HYDROXIDE-SIMETHICONE 200-200-20MG/5ML ORAL LIQD 30 ML PO PRN (16:18)
[2020-06-08 20:32] VITALS: BP 101/56
== END 2020-06-08 21:19 ==
LOC: ED 04:38
DX: R45.851 Suicidal ideations (principal); F29 Unspecified psychosis not due to a substance or known physiological condition; F25.0 Schizoaffective disorder, bipolar type; F17.200 Nicotine dependence, unspecified, uncomplicated; Z79.1 Long term (current) use of non-steroidal anti-inflammatories (NSAID); Z79.899 Other long term (current) drug therapy; Z88.0 Allergy status to penicillin; Z88.8 Allergy status to other drugs, medicaments and biological substances
CPT/HCPCS: 36415; 80048; 80076; 80307; 80320; 81001; 84703; 85025; G0480

== ENCOUNTER 2020-06-22 20:31 | Emergency (ER) | payer MEDICARE, MEDICAID ==
[2020-06-22 20:49] VITALS: BP 131/79
--- NOTE | 2020-06-22 20:57 | Event Note ---
ED Screening Note ED Screening Note: +dysuria that began today states she has EDWARDS and menstrual cramps states her cycle began today no fever no N/v/d no pmhx allergy: PCN, hydrocodone has not taken anything for her symptoms states she is from [facility], denies any SI or HI This initial assessment/diagnostic orders/clinical plan/treatment(s) is/are subject to change based on patients health status, clinical progression and re- assessment by fellow clinical providers in the ED. Further treatment and workup at subsequent clinical providers discretion. Patient/guardian urged not to elope from the ED as their condition may be serious if not clinically assessed and managed. Initial orders include: ua, urine preg
[2020-06-22] MEDS ORDERED: IBUPROFEN 600 MG TAB PO ONE (21:12)
[2020-06-22] MEDS ORDERED: ACETAMINOPHEN 500 MG TAB PO ONE (21:12)
[2020-06-22] MEDS ORDERED: ONDANSETRON 4 MG ODT TAB PO ONE (21:13)
[2020-06-22 21:15] LABS: HCG Qualitative,Urine Negative (Negative)
[2020-06-22 21:17] LABS: Bilirubin,Urine NEG (Negative); Blood,Urine LG (Negative); Color,Urine Red (Yellow); Mucus,Urine 3+ /HPF; Urobilinogen,Urine < 2.0 mg/dL (<2.0)
[2020-06-22 21:18] LABS: RBC,Urine > 182.0 /HPF (0.0-6.0)
--- NOTE | 2020-06-22 22:15 | Emergency Department Report ---
ED General Adult HPI - General Chief complaint: Headache Stated complaint: HEADACHE/CRAMPS Time Seen by Provider: 06/22/20 20:56 Source: patient Mode of arrival: Ambulatory Limitations: No Limitations - History of Present Illness Initial comments: Patient is a A0 29-year-old -[place] female with a history of bipolar disorder, anxiety and depression and paranoid schizophrenia who presents to the ED with complaint of acute onset persistent headache and painful menstrual cramps for the last 12 hours. Patient states that the headache has be en persistent and that the dysmenorrhea has also worsened in the last 6 hours. Patient states that the dysmenorrhea is typical of her regular menstrual cycle. Patient states that she has not taken any medications prior to arrival in the ED for pain. Patient denies dizziness, syncope, nausea, vomiting, diarrhea, chest pain, shortness of breath, dysuria, vaginal discharge, sore throat, cough, ch derrick in vision or palpitations. MD Complaint: Headache, menstrual cramps -: Sudden, hour(s) (12) Location: head, abdomen Radiation: non-radiation Severity scale (0 -10): 6 Quality: aching, sharp Consistency: constant Improves with: none Worsens with: none Associated Symptoms: denies other symptoms, headaches. denies: confusion, chest pain, cough, diaphoresis, fever/chills, loss of appetite, malaise, nausea/vomiting, rash, seizure, shortness of breath, syncope, weakness Treatments Prior to Arrival: none - Related Data Previous Rx's Medication Instructions Recorded Last Taken Type Ibuprofen [Motrin 600 MG tab] 600 mg PO Q8H PRN #15 tablet 03/17/19 Unknown Rx guaiFENesin [Robitussin] 200 mg PO Q4HR PRN #1 bottle 03/17/19 Unknown Rx Ibuprofen [Motrin] 800 mg PO Q8HR PRN #30 tablet 06/22/20 Unknown Rx Allergies Allergy/AdvReac Type Severity Reaction Status Date / Time hydrocodone Allergy Hives Verified 07/29/16 09:37 Penicillins Allergy Unknown Verified 07/29/16 09:37 PEROXIDE Allergy Hives Uncoded 03/17/19 12:23 ED Review of Systems ROS: Stated complaint: HEADACHE/CRAMPS Other details as noted in HPI Constitutional: denies: chills, fever Eyes: denies: eye pain, eye discharge, vision change ENT: denies: ear pain, throat pain Respiratory: denies: cough, shortness of breath, wheezing Cardiovascular: denies: chest pain, palpitations Endocrine: no symptoms reported Gastrointestinal: abdominal pain (suprapubic pain). denies: nausea, diarrhea Genitourinary: abnormal menses (vaginal bleeding). denies: urgency, dysuria, discharge Musculoskeletal: denies: back pain, joint swelling, arthralgia Skin: denies: rash, lesions Neurological: headache. denies: weakness, paresthesias Psychiatric: denies: anxiety, depression Hematological/Lymphatic: denies: easy bleeding, easy bruising ED Past Medical Hx - Past Medical History Hx Psychiatric Treatment: Yes (dEPRESSION, shizophrenia, bipolar) - Surgical History Past Surgical History?: No - Social History Smoking Status: Never Smoker Substance Use Type: None - Medications Home Medications: Home Medications Medication Instructions Recorded Confirmed Last Taken Type Ibuprofen [Motrin 600 MG tab] 600 mg PO Q8H PRN #15 tablet 03/17/19 06/08/20 Unknown Rx guaiFENesin [Robitussin] 200 mg PO Q4HR PRN #1 bottle 03/17/19 06/08/20 Unknown Rx Ibuprofen [Motrin] 800 mg PO Q8HR PRN #30 tablet 06/22/20 Unknown Rx ED Physical Exam - General Limitations: No Limitations General appearance: alert, in no apparent distress - Head Head exam: Present: atraumatic, normocephalic, normal inspection - Eye Eye exam: Present: normal appearance, PERRL, EOMI Pupils: Present: normal accommodation - ENT ENT exam: Present: normal exam, normal orophraynx, mucous membranes moist, TM's normal bilaterally, normal external ear exam - Neck Neck exam: Present: normal inspection, full ROM - Respiratory Respiratory exam: Present: normal lung sounds bilaterally. Absent: respiratory distress, wheezes, rales, rhonchi, chest wall tenderness, accessory muscle use, decreased breath sounds, prolonged expiratory - Cardiovascular Cardiovascular Exam: Present: regular rate, normal rhythm, normal heart sounds. Absent: systolic murmur, diastolic murmur, rubs, gallop - GI/Abdominal GI/Abdominal exam: Present: soft, normal bowel sounds. Absent: distended, tenderness, guarding, rebound, hyperactive bowel sounds, hypoactive bowel sounds, organomegaly - Bi-manual exam: Present: other (Pelvic exam deferred) - Extremities Exam Extremities exam: Present: normal inspection, full ROM, normal capillary refill - Back Exam Back exam: Present: normal inspection, full ROM. Absent: tenderness, CVA tenderness (R), CVA tenderness (L), muscle spasm - Neurological Exam Neurological exam: Present: alert, oriented X3, CN II-XII intact, normal gait, reflexes normal - Psychiatric Psychiatric exam: Present: normal affect, normal mood - Skin Skin exam: Present: warm, dry, intact, normal color. Absent: rash ED Course Vital Signs 06/22/20 20:47 Temperature 98.3 F Pulse Rate 96 H Respiratory 20 Rate Blood Pressure 131/79 O2 Sat by Pulse 97 Oximetry ED Medical Decision Making - Medical Decision Making This is a A0 29-year-old -[place] female with a history of bipolar disorder, anxiety and depression and paranoid schizophrenia who presents to the ED with complaint of acute onset persistent headache and painful menstrual cramps for the last 12 hours. Patient states that the headache has been persistent and that the dysmenorrhea has also worsened in the last 6 hours. Patient states that the dysmenorrhea is typical of her regular menstrual cycle. Patient states that she has not taken any medications prior to arrival in the E D for pain. In the ED, patient is alert and oriented x3 and is not in distress. Urinalysis is unremarkable and shows significant hematuria due to patient's current ongoing menstrual cycle. Patient was treated for headache in the ED and on reevaluation, patient's headache resolved with medications. Patient was discharged home on pain medications for dysmenorrhea and was advised to follow- up with her WELLNESS MANAGER physician or primary care physician in 7 to 10 days for reevaluation or return to the ED immediately if symptoms get worse. - Differential Diagnosis dysmenorrhea; Tension headache; pelvic pain; UTI Critical care attestation.: If time is entered above; I have spent that time in minutes in the direct care of this critically ill patient, excluding procedure time. ED Disposition Clinical Impression: Primary dysmenorrhea Tension type headache Qualifiers: Headache chronicity pattern: acute headache Intractability: not intractable Qualified Code(s): G44.209 - Tension-type headache, unspecified, not intractable Disposition: DC-01 TO HOME OR SELFCARE Is pt being admited?: No Does the pt Need Aspirin: No Condition: Stable Instructions: Acute Headache (ED), Dysmenorrhea (ED) Additional Instructions: Take medication with food, drink plenty of fluids and follow-up with your WELLNESS MANAGER physician or primary care physician in 7 to 10 days for reevaluation. Return to the ED immediately if symptoms get worse. Prescriptions: Ibuprofen [Motrin] 800 mg PO Q8HR PRN #30 tablet PRN Reason: Pain , Severe (7-10) Referrals: ERIC MENARD MD [Primary Care Provider] - 3-5 Days Time of Disposition: 22:09 Print Language: BANGLADESHI
== END 2020-06-22 22:15 | disposition home or self-care (01) ==
LOC: ED 20:31
DX: G44.209 Tension-type headache, unspecified, not intractable (principal); N94.4 Primary dysmenorrhea; F20.9 Schizophrenia, unspecified; Z79.1 Long term (current) use of non-steroidal anti-inflammatories (NSAID); Z79.899 Other long term (current) drug therapy; Z88.0 Allergy status to penicillin; Z88.8 Allergy status to other drugs, medicaments and biological substances
CPT/HCPCS: 81001; 81025; Q0162

== ENCOUNTER 2022-05-08 03:24 | Emergency (ER) | payer MEDICARE ==
[2022-05-08 03:41] VITALS: BP 140/80
[2022-05-08] MEDS ORDERED: BENZONATATE 100 MG CAP PO ONE (04:41)
[2022-05-08] MEDS ORDERED: predniSONE 20 MG TAB PO ONE (04:41)
[2022-05-08] MEDS ORDERED: ACETAMINOPHEN W/CODEINE 300-30 MG TAB PO ONE (04:42)
--- NOTE | 2022-05-08 05:04 | XRay Report ---
CHEST 2 VIEWS INDICATION / CLINICAL INFORMATION: sob. COMPARISON: 03/17/2019 FINDINGS: SUPPORT DEVICES: None. HEART / MEDIASTINUM: No significant abnormality. LUNGS / PLEURA: No significant pulmonary or pleural abnormality. No pneumothorax. ADDITIONAL FINDINGS: No significant additional findings. IMPRESSION: 1. No acute findings. No interval change.. Signer Name: Amina Gregorio MD Signed: 05/08/2022 5:00 AM Workstation Name: [id number]
--- NOTE | 2022-05-08 05:29 | Emergency Department Report ---
ED ENT HPI - General Chief complaint: Upper Respiratory Infection Stated complaint: SICK SX Time Seen by Provider: 05/08/22 04:40 Source: EMS Mode of arrival: Stretcher Limitations: No Limitations - History of Present Illness Initial comments: 31-year-old black female with a past medical history of depression and schizophrenia presents to the emergency department for evaluation of cough, chills, fever, shortness of breath, headache, and body aches. She states that she was diagnosed with COVID a couple of weeks ago, had a negative test, but now denies that she had previously. She states that pain at its worst is 10 out of 10. MD complaint: other (Headache, fever, chills, cough, shortness of breath, and body ache) -: Gradual, days(s) (6-7) Location: other (Generalized myalgias) Severity: severe Severity scale (0 -10): 10 Quality: aching Consistency: constant Associated Symptoms: fever, cough, rhinorrhea. denies: gum swelling, toothache, pain with swallowing, sore throat, tinnitus, hearing loss, discharge from ear - Related Data Previous Rx's Medication Instructions Recorded Last Taken Type Ibuprofen [Motrin 600 MG tab] 600 mg PO Q8H PRN #15 tablet 03/17/19 Unknown Rx guaiFENesin [Robitussin] 200 mg PO Q4HR PRN #1 bottle 03/17/19 Unknown Rx Ibuprofen [Motrin] 800 mg PO Q8HR PRN #30 tablet 06/22/20 Unknown Rx Benzonatate [Tessalon Perles] 100 mg PO Q8HR PRN #30 cap 05/08/22 Unknown Rx Brompheniramine/Pseudoephed/Dm 10 ml PO TID PRN #120 ml 05/08/22 Unknown Rx [Bromfed Dm Cough Syrup] methylPREDNISolone [Medrol 4MG 4 mg PO DAILY #1 pack 05/08/22 Unknown Rx DOSEPAK (21 tabs)] Allergies Allergy/AdvReac Type Severity Reaction Status Date / Time hydrocodone Allergy Hives Verified 07/29/16 09:37 Penicillins Allergy Unknown Verified 07/29/16 09:37 PEROXIDE Allergy Hives Uncoded 03/17/19 12:23 ED Dental HPI - General Chief complaint: Upper Respiratory Infection Stated complaint: SICK SX Time Seen by Provider: 05/08/22 04:40 Source: EMS Mode of arrival: Stretcher Limitations: No Limitations - Related Data Previous Rx's Medication Instructions Recorded Last Taken Type Ibuprofen [Motrin 600 MG tab] 600 mg PO Q8H PRN #15 tablet 03/17/19 Unknown Rx guaiFENesin [Robitussin] 200 mg PO Q4HR PRN #1 bottle 03/17/19 Unknown Rx Ibuprofen [Motrin] 800 mg PO Q8HR PRN #30 tablet 06/22/20 Unknown Rx Benzonatate [Tessalon Perles] 100 mg PO Q8HR PRN #30 cap 05/08/22 Unknown Rx Brompheniramine/Pseudoephed/Dm 10 ml PO TID PRN #120 ml 05/08/22 Unknown Rx [Bromfed Dm Cough Syrup] methylPREDNISolone [Medrol 4MG 4 mg PO DAILY #1 pack 05/08/22 Unknown Rx DOSEPAK (21 tabs)] Allergies Allergy/AdvReac Type Severity Reaction Status Date / Time hydrocodone Allergy Hives Verified 07/29/16 09:37 Penicillins Allergy Unknown Verified 07/29/16 09:37 PEROXIDE Allergy Hives Uncoded 03/17/19 12:23 ED Review of Systems ROS: Stated complaint: SICK SX Other details as noted in HPI Comment: All other systems reviewed and negative Constitutional: chills, fever, malaise. denies: weakness ENT: congestion Respiratory: cough, shortness of breath. denies: SOB with exertion, SOB at rest, stridor, wheezing Cardiovascular: denies: chest pain, palpitations Gastrointestinal: denies: abdominal pain, nausea, vomiting Musculoskeletal: denies: back pain Skin: denies: rash Neurological: headache. denies: weakness ED Past Medical Hx - Past Medical History Previous Medical History?: Yes Hx Psychiatric Treatment: Yes (dEPRESSION, shizophrenia, bipolar) - Surgical History Past Surgical History?: No - Social History Smoking Status: Current Every Day Smoker - Medications Home Medications: Home Medications Medication Instructions Recorded Confirmed Last Taken Type Ibuprofen [Motrin 600 MG tab] 600 mg PO Q8H PRN #15 tablet 03/17/19 06/08/20 Unknown Rx guaiFENesin [Robitussin] 200 mg PO Q4HR PRN #1 bottle 03/17/19 06/08/20 Unknown Rx Ibuprofen [Motrin] 800 mg PO Q8HR PRN #30 tablet 06/22/20 Unknown Rx Benzonatate [Tessalon Perles] 100 mg PO Q8HR PRN #30 cap 05/08/22 Unknown Rx Brompheniramine/Pseudoephed/Dm 10 ml PO TID PRN #120 ml 05/08/22 Unknown Rx [Bromfed Dm Cough Syrup] methylPREDNISolone [Medrol 4MG 4 mg PO DAILY #1 pack 05/08/22 Unknown Rx DOSEPAK (21 tabs)] ED Physical Exam - General Limitations: No Limitations General appearance: alert, in no apparent distress - Head Head exam: Present: atraumatic, normocephalic - Eye Eye exam: Present: normal appearance. Absent: conjunctival injection, periorbital swelling, periorbital tenderness - ENT ENT exam: Absent: normal exam (Bilateral nasal mucosal edema noted), normal orophraynx (Erythema noted to posterior oropharynx) - Neck Neck exam: Present: normal inspection, full ROM. Absent: tenderness, lymphadenopathy - Respiratory Respiratory exam: Present: normal lung sounds bilaterally, chest wall tenderness. Absent: respiratory distress, wheezes, rales, rhonchi, stridor - Cardiovascular Cardiovascular Exam: Present: regular rate, normal heart sounds - GI/Abdominal GI/Abdominal exam: Present: soft, normal bowel sounds. Absent: distended, tenderness, guarding, rebound, rigid - Extremities Exam Extremities exam: Present: normal inspection, full ROM, normal capillary refill. Absent: tenderness, pedal edema, joint swelling, calf tenderness - Back Exam Back exam: Present: normal inspection. Absent: CVA tenderness (R), CVA tenderness (L), vertebral tenderness - Neurological Exam Neurological exam: Present: alert, oriented X3, CN II-XII intact, normal gait - Psychiatric Psychiatric exam: Present: normal affect, normal mood - Skin Skin exam: Present: warm, dry, intact, normal color ED Course Vital Signs 05/08/22 03:39 Temperature 97.8 F Pulse Rate 91 H Respiratory 16 Rate Blood Pressure 140/80 O2 Sat by Pulse 96 Oximetry ED Medical Decision Making - Radiology Data Radiology results: report reviewed, image reviewed Chest x-ray: FINDINGS: SUPPORT DEVICES: None. HEART / MEDIASTINUM: No significant abnormality. LUNGS / PLEURA: No significant pulmonary or pleural abnormality. No pneumothorax. ADDITIONAL FINDINGS: No significant additional findings. IMPRESSION: 1. No acute findings. No interval change.. - Medical Decision Making 31-year-old black female with a past medical history of depression and schizophrenia presents to the emergency department for evaluation of cough, chills, fever, shortness of breath, headache, and body aches. She states that she was diagnosed with COVID a couple of weeks ago, had a negative test, but now denies that she had previously. She states that pain at its worst is 10 out of 10. Physical exam unremarkable, chest x-ray without any acute abnormalities noted patient be discharged home with Medrol Dosepak, Tessalon Perles, and Bromfed to use as needed. She is advised to follow-up with her primary care provider if no improvement or worsening symptoms and return to the emergency department as needed. She verbalizes understanding of and agreement with plan of care. Critical care attestation.: If time is entered above; I have spent that time in minutes in the direct care of this critically ill patient, excluding procedure time. ED Disposition Clinical Impression: URI with cough and congestion Disposition: 01 HOME / SELF CARE / HOMELESS Is pt being admited?: No Does the pt Need Aspirin: No Condition: Stable Instructions: Upper Respiratory Infection, Adult, [id number], Viral Respiratory Infection, [id number] Additional Instructions: Take medications as prescribed. Follow-up with your primary care provider if no improvement or worsening symptoms. Return to the emergency department as needed. Prescriptions: Brompheniramine/Pseudoephed/Dm [Bromfed Dm Cough Syrup] 10 ml PO TID PRN #120 ml PRN Reason: Cough methylPREDNISolone [Medrol 4MG DOSEPAK (21 tabs)] 4 mg PO DAILY #1 pack Benzonatate [Tessalon Perles] 100 mg PO Q8HR PRN #30 cap PRN Reason: Cough Referrals: KIRILL CHÁVEZ MD [Staff Physician] - 3-5 Days Forms: Work/School Release Form(ED) Time of Disposition: 05:33
== END 2022-05-08 06:21 | disposition home or self-care (01) ==
LOC: ED 03:24
DX: J06.9 Acute upper respiratory infection, unspecified (principal); F31.9 Bipolar disorder, unspecified; F20.9 Schizophrenia, unspecified; F17.200 Nicotine dependence, unspecified, uncomplicated; Z88.0 Allergy status to penicillin; Z88.5 Allergy status to narcotic agent
CPT/HCPCS: 71046; 99283

== ENCOUNTER 2022-05-14 00:22 | Emergency (ER) | payer MEDICARE ==
[2022-05-14 00:57] VITALS: BP 125/80
--- NOTE | 2022-05-14 08:08 | Emergency Department Report ---
HPI - General Chief Complaint: Medical Clearance Time Seen by Provider: 05/14/22 07:24 - HPI HPI: Room 29 The patient is a 31-year-old female presenting with a chief complaint of suicidal ideation. Patient has a history of schizophrenia and bipolar disorder and states for the past 13 hours she is felt suicidal. Patient states she was sent to the ED for medical clearance to go to [facility]. Patient denies any attempts at trying to harm her self or having an active plan. Patient admits to cocaine use stating she last used it 1 or 2 days ago. ED Past Medical Hx - Past Medical History Hx Psychiatric Treatment: Yes (dEPRESSION, shizophrenia, bipolar) Hx Asthma: Yes - Surgical History Past Surgical History?: No - Family History Family history: no significant - Social History Smoking Status: Current Every Day Smoker (1/2 pack/day) Substance Use Type: Alcohol (Occasional), Cocaine, Marijuana - Medications Home Medications: Home Medications Medication Instructions Recorded Confirmed Last Taken Type Ibuprofen [Motrin 600 MG tab] 600 mg PO Q8H PRN #15 tablet 03/17/19 06/08/20 Unknown Rx guaiFENesin [Robitussin] 200 mg PO Q4HR PRN #1 bottle 03/17/19 06/08/20 Unknown Rx Ibuprofen [Motrin] 800 mg PO Q8HR PRN #30 tablet 06/22/20 Unknown Rx Benzonatate [Tessalon Perles] 100 mg PO Q8HR PRN #30 cap 05/08/22 Unknown Rx Brompheniramine/Pseudoephed/Dm 10 ml PO TID PRN #120 ml 05/08/22 Unknown Rx [Bromfed Dm Cough Syrup] methylPREDNISolone [Medrol 4MG 4 mg PO DAILY #1 pack 05/08/22 Unknown Rx DOSEPAK (21 tabs)] ED Review of Systems ROS: Stated complaint: MEDICAL CLEARENCE Other details as noted in HPI Constitutional: no symptoms reported Eyes: denies: eye pain ENT: denies: throat pain Respiratory: no symptoms reported Cardiovascular: denies: chest pain Endocrine: no symptoms reported Gastrointestinal: denies: abdominal pain Genitourinary: denies: dysuria Musculoskeletal: denies: back pain Neurological: denies: headache Psychiatric: suicidal thoughts Physical Exam - Physical Exam Vital Signs: Vital Signs 05/14/22 00:43 Temperature 97.8 F Pulse Rate 86 Respiratory 16 Rate Blood Pressure 125/80 [Right] O2 Sat by Pulse 99 Oximetry Physical Exam: GENERAL: The patient is well-developed well-nourished female lying in chair not appearing to be in acute distress. [] HEENT: Normocephalic. Atraumatic. Extraocular motions are intact. Patient has moist mucous membranes. NECK: Supple. Trachea midline CHEST/LUNGS: Clear to auscultation. There is no respiratory distress noted. HEART/CARDIOVASCULAR: Regular. There is no tachycardia. There is no gallop rub or murmur. ABDOMEN: Abdomen is soft, nontender. Patient has normal bowel sounds. There is no abdominal distention. SKIN: There is no rash. There is no edema. There is no diaphoresis. NEURO: The patient is asleep but easily awakened by tactile stimuli to become alert, and oriented. The patient is cooperative. The patient has no focal neurologic deficits. The patient has normal speech. GCS 15 MUSCULOSKELETAL: There is no evidence of acute injury. ED Course Vital Signs 05/14/22 00:43 Temperature 97.8 F Pulse Rate 86 Respiratory 16 Rate Blood Pressure 125/80 [Right] O2 Sat by Pulse 99 Oximetry ED Medical Decision Making - Lab Data Result diagrams: 05/14/22 08:23 05/14/22 08:23 Laboratory Tests 05/14/22 05/14/22 05/14/22 08:23 08:23 08:23 WBC 5.3 RBC 4.15 Hgb 12.2 Hct 37.9 MCV 91 MCH 30 MCHC 32 RDW 14.2 Plt Count 221 Lymph % (Auto) 32.4 [place] % (Auto) 10.4 H Eos % (Auto) 2.8 Baso % (Auto) 1.4 Lymph # (Auto) 1.7 [place] # (Auto) 0.6 Eos # (Auto) 0.1 Baso # (Auto) 0.1 Seg Neutrophils % 53.0 Seg Neutrophils # 2.8 Sodium 137 Potassium 4.3 Chloride 102.4 Carbon Dioxide 26 Anion Gap 13 BUN 16 Creatinine 0.9 Estimated GFR > 60 BUN/Creatinine Ratio 18 Glucose 81 Calcium 8.6 HCG, Qual Urine Color Urine Turbidity Urine pH Ur Specific [place] Urine Protein Urine Glucose (UA) Urine Ketones Urine Blood Urine Nitrite Urine Bilirubin Urine Urobilinogen Ur Leukocyte Esterase Urine WBC (Auto) Urine RBC (Auto) U Epithel Cells (Auto) Urine Bacteria (Auto) Urine Mucus Salicylates < 0.3 L Urine Opiates Screen Urine Methadone Screen Acetaminophen Ur Barbiturates Screen Ur Phencyclidine Scrn Ur Amphetamines Screen U Benzodiazepines Scrn Urine Cocaine Screen U Marijuana (THC) Screen Drugs of Abuse Note Plasma/Serum Alcohol 05/14/22 05/14/22 05/14/22 08:23 08:23 08:23 WBC RBC Hgb Hct MCV MCH MCHC RDW Plt Count Lymph % (Auto) [place] % (Auto) Eos % (Auto) Baso % (Auto) Lymph # (Auto) [place] # (Auto) Eos # (Auto) Baso # (Auto) Seg Neutrophils % Seg Neutrophils # Sodium Potassium Chloride Carbon Dioxide Anion Gap BUN Creatinine Estimated GFR BUN/Creatinine Ratio Glucose Calcium HCG, Qual Negative Urine Color Urine Turbidity Urine pH Ur Specific [place] Urine Protein Urine Glucose (UA) Urine Ketones Urine Blood Urine Nitrite Urine Bilirubin Urine Urobilinogen Ur Leukocyte Esterase Urine WBC (Auto) Urine RBC (Auto) U Epithel Cells (Auto) Urine Bacteria (Auto) Urine Mucus Salicylates Urine Opiates Screen Urine Methadone Screen Acetaminophen 5.0 L Ur Barbiturates Screen Ur Phencyclidine Scrn Ur Amphetamines Screen U Benzodiazepines Scrn Urine Cocaine Screen U Marijuana (THC) Screen Drugs of Abuse Note Plasma/Serum Alcohol < 0.01 05/14/22 05/14/22 10:25 10:25 WBC RBC Hgb Hct MCV MCH MCHC RDW Plt Count Lymph % (Auto) [place] % (Auto) Eos % (Auto) Baso % (Auto) Lymph # (Auto) [place] # (Auto) Eos # (Auto) Baso # (Auto) Seg Neutrophils % Seg Neutrophils # Sodium Potassium Chloride Carbon Dioxide Anion Gap BUN Creatinine Estimated GFR BUN/Creatinine Ratio Glucose Calcium HCG, Qual Urine Color Yellow Urine Turbidity Clear Urine pH 6.0 Ur Specific [place] 1.030 Urine Protein <15 mg/dl Urine Glucose (UA) Neg Urine Ketones Neg Urine Blood Neg Urine Nitrite Neg Urine Bilirubin Neg Urine Urobilinogen < 2 Ur Leukocyte Esterase Tr Urine WBC (Auto) 12.0 H Urine RBC (Auto) 1.0 U Epithel Cells (Auto) 12.0 Urine Bacteria (Auto) 1+ Urine Mucus Few Salicylates Urine Opiates Screen Negative Urine Methadone Screen Negative Acetaminophen Ur Barbiturates Screen Negative Ur Phencyclidine Scrn Negative Ur Amphetamines Screen Negative U Benzodiazepines Scrn Negative Urine Cocaine Screen Positive U Marijuana (THC) Screen Positive Drugs of Abuse Note Disclamer Plasma/Serum Alcohol - Differential Diagnosis URI, RSV, influenza, coronavirus, pneumonia, bronchitis, bronchiolitis Critical care attestation.: If time is entered above; I have spent that time in minutes in the direct care of this critically ill patient, excluding procedure time. ED Disposition Clinical Impression: Suicidal ideation, Cocaine abuse Disposition: 30 STILL A PATIENT Is pt being admited?: No Does the pt Need Aspirin: No Condition: Stable Time of Disposition: 11:41 (Awaiting acceptance)
[2022-05-14 08:55] LABS: BUN/Creatinine Ratio 18; Blood Urea Nitrogen 16 mg/dL (7-17); Calcium 8.6 mg/dL (8.4-10.2); Hemolysis Index 5
[2022-05-14 09:49] LABS: Basophils # (Auto) 0.1 K/mm3 (0.0-0.1); Basophils % (Auto) 1.4 % (0.0-1.8); Eosinophils # (Auto) 0.1 K/mm3 (0.0-0.4); Eosinophils % (Auto) 2.8 % (0.0-4.3); Hematocrit 37.9 % (30.3-42.9); Hemoglobin 12.2 gm/dl (10.1-14.3); Lymphocytes # (Auto) 1.7 K/mm3 (1.2-5.4); Lymphocytes % (Auto) 32.4 % (13.4-35.0); Mean Corpuscular HGB Conc 32 % (30-34); Mean Corpuscular Volume 91 fl (79-97); Monocytes # (Auto) 0.6 K/mm3 (0.0-0.8); Monocytes % (Auto) 10.4 % (0.0-7.3); Platelet Count 221 K/mm3 (140-440); Red Blood Count 4.15 M/mm3 (3.65-5.03); Red Cell Distribution Width 14.2 % (13.2-15.2)
[2022-05-14 10:45] LABS: Amphetamine Screen,Urine Negative; Benzodiazepines Screen,Urine Negative; Methadone Screen,Urine Negative; Opiate Screen,Urine Negative
[2022-05-14 10:54] LABS: Bilirubin,Urine NEG (Negative); Blood,Urine NEG (Negative); Color,Urine Yellow (Yellow); Protein,Urine <15 mg/dL mg/dL (Negative); Urobilinogen,Urine < 2 mg/dL (<2.0)
[2022-05-14 11:06] LABS: Cannabinoid Screen,Urine Positive; Cocaine Screen,Urine Positive
[2022-05-14 11:23] LABS: Bacteria,Urine 1+ /HPF (Negative); Mucus,Urine FEW /HPF
--- NOTE | 2022-05-14 11:27 | Consultation ---
History of Present Illness - Reason for Consult Consult date: 05/14/22 Reason for consult: SI, cocaine use - History of Present Psychiatric Illness The patient was seen today. She presented to the ER for suicidal thoughts. The patient states she needs medical clearance to go to [facility], The patient is irritable. She says she doesn't have any money and no support. The patient says she is suicidal, but doesn't have a plan. The patient says she is seeing people, "weird people that's not there." She says she has a history of schizophrenia. She says she takes Risperidone and trazodone but hasn't been taking them regularly. The patient denies any illicit drug use but she is positive for Cocaine. PAST PSYCHIATRIC HISTORY: Diagnoses: schizophrenia Suicide attempts or Self-harm behavior: Denies Prior psychiatric hospitalizations: Yes Substance Abuse history: Cocaine + Previous psychiatric medications tried: risperidone Outpatient treatment: Yes PAST MEDICAL HISTORY: None reported Family Psychiatric History: None reported SOCIAL HISTORY Marital Status: Single Living Arrangements: Alone Employment Status: Unemployed Access to guns/weapons: Denies Education: History of Abuse: Denies Legal History: Denies REVIEW OF SYSTEMS Constitutional: Negative for weight loss ENT: Negative for stridor Respiratory: Negative for cough or hemoptysis All other systems reviewed and are negative MENTAL STATUS EXAMINATION General Appearance and Behavior: Age appropriate, wearing appropriate clothes, good eye contact, irritable Cooperation: cooperative Psychomotor Behavior: normal Mood: depressed Affect and affective range: congruent with stated mood Thought Process: goal directed Thought Content: hallucinations, SI Speech: Normal volume, Regular rate and rhythm Suicidal Ideation: Yes Homicidal Ideation: Denies Hallucination: Visual Delusions: None elicited Impulse Control: Limited Insight and Judgment: Limited Memory: Normal Attention: attentive Orientation: a/o x 3 Diagnoses: Schizophrenia Cocaine Use Disorder Treatment Plan 1013 Risperidone 0.5mg po BID Lexapro 5mg po daily Trazodone 50mg po qhs Risks, benefits and alternatives of medications discussed with the patient, questions answered and consent obtained from patient. PSYCHOTHERAPY: Supportive psychotherapy provided MEDICAL: Per primary team DELIRIUM PRECAUTIONS: Please re-orient patient frequently, keep lights on during the day, and minimize benzodiazepines and opiates as these medications could worsen patient's confusion. 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 FOLLOW-UP: Will follow Case staffed with Dr. Toure Medications and Allergies Allergies Allergy/AdvReac Type Severity Reaction Status Date / Time hydrocodone Allergy Hives Verified 07/29/16 09:37 Penicillins Allergy Unknown Verified 07/29/16 09:37 PEROXIDE Allergy Hives Uncoded 03/17/19 12:23 Home Medications Medication Instructions Recorded Confirmed Last Taken Type Ibuprofen [Motrin 600 MG tab] 600 mg PO Q8H PRN #15 tablet 03/17/19 06/08/20 Unknown Rx guaiFENesin [Robitussin] 200 mg PO Q4HR PRN #1 bottle 03/17/19 06/08/20 Unknown Rx Ibuprofen [Motrin] 800 mg PO Q8HR PRN #30 tablet 06/22/20 Unknown Rx Benzonatate [Tessalon Perles] 100 mg PO Q8HR PRN #30 cap 05/08/22 Unknown Rx Brompheniramine/Pseudoephed/Dm 10 ml PO TID PRN #120 ml 05/08/22 Unknown Rx [Bromfed Dm Cough Syrup] methylPREDNISolone [Medrol 4MG 4 mg PO DAILY #1 pack 05/08/22 Unknown Rx DOSEPAK (21 tabs)] Mental Status Exam - Vital signs Last Vital Signs Temp 97.8 F 05/14/22 00:43 Pulse 86 05/14/22 00:43 Resp 16 05/14/22 00:43 BP 125/80 05/14/22 00:43 Pulse Ox 99 05/14/22 00:43 Results Result Diagrams: 05/14/22 08:23 05/14/22 08:23 Abnormal lab results 05/14/22 05/14/22 05/14/22 Range/Units 08:23 08:23 08:23 [place] % (Auto) 10.4 H (0.0-7.3) % Salicylates < 0.3 L (2.8-20.0) mg/dL Acetaminophen 5.0 L (10.0-30.0) ug/mL All other labs normal.
[2022-05-14] MEDS ORDERED: risperiDONE 0.25 MG TAB PO SCH (12:00)
[2022-05-14] MEDS ORDERED: ESCITALOPRAM 10 MG TAB PO SCH (12:00)
[2022-05-14] MEDS ORDERED: traZODone 50 MG TAB PO SCH (22:00)
== END 2022-05-14 19:30 | disposition still patient (30) ==
LOC: ED 00:22
DX: R45.851 Suicidal ideations (principal); F14.10 Cocaine abuse, uncomplicated; F20.9 Schizophrenia, unspecified; Z20.822 Contact with and (suspected) exposure to COVID-19; F31.9 Bipolar disorder, unspecified; J45.909 Unspecified asthma, uncomplicated; F17.210 Nicotine dependence, cigarettes, uncomplicated; Z79.899 Other long term (current) drug therapy; Z88.5 Allergy status to narcotic agent; Z88.0 Allergy status to penicillin
CPT/HCPCS: 36415; 80048; 80307; 81001; 84703; 85025; 87086; 99283; U0003; 80320; G0480